=== PATIENT | male | born 1970 | race Caucasian/White ===

== ENCOUNTER → 2021-04-01 | Day surgery (SDC) | payer MEDICARE ==
[~2021-04-01] VITALS: Ht 177.8 cm; Wt 86.2 kg
[~2021-04-01] MED LIST: ASCORBIC ACID500 MG PO; CITALOPRAM HBR20 MG PO; DEPAKOTE SPRIN125 M2 PO; GABAPENTIN400 MG PO; MELOXICAM15 MG PO; MULTAQ400 MG PO; ZINC10 MG PO
== END | disposition home or self-care (01) ==
LOC: FAS 07:34
DX: Z12.11 Encounter for screening for malignant neoplasm of colon (principal); D12.5 Benign neoplasm of sigmoid colon; D12.8 Benign neoplasm of rectum; F17.200 Nicotine dependence, unspecified, uncomplicated; F41.9 Anxiety disorder, unspecified; F32.A Depression, unspecified; G43.909 Migraine, unspecified, not intractable, without status migrainosus; M19.90 Unspecified osteoarthritis, unspecified site; Z86.73 Personal history of transient ischemic attack (TIA), and cerebral infarction without residual deficits; Z79.1 Long term (current) use of non-steroidal anti-inflammatories (NSAID); Z79.899 Other long term (current) drug therapy; Z88.8 Allergy status to other drugs, medicaments and biological substances; Z72.89 Other problems related to lifestyle
CPT/HCPCS: J2250; J2704